=== PATIENT | female | born 1980 | race Caucasian/White ===

== ENCOUNTER → 2024-12-24 | Day surgery (SDC) | payer OTHER ==
[~2024-12-24] MED LIST: ACETAMINOPHEN 1000 MG/100 ML 100 ML IV ONE; ADDERALL 30 MG30 MG PO; DEXAMETHASONE SOD PHOS INJ 4 MG/ML SDV ONE; FAMOTIDINE 20 MG/2 ML VIAL IV ONE; FENTANYL CITRATE/PF 100MCG/2 ML INJ ONE; HYDROCODON-ACE1 EA11 PO; LIDOCAINE HCL 2% LOCAL INJ 5 ML SDV VIAL INJ ONE; METOPROLOL TART50 MG PO; MIDAZOLAM HCL 2 MG/2 ML VIAL ONE; PROPOFOL IV EMULSION 10 MG/ML 20 ML VIAL ONE; SODIUM CHLORIDE 0.9% 100 ML ONE; WOMEN'S DAILY1 EAC4 PO
[2024-12-24] MEDS: LACTATED RINGER'S 1,000 ML ONE (06:00)
[2024-12-24 08:18] VITALS: TEMP 97
[2024-12-24] MEDS: ACETAMINOPHEN/CODEINE 300MG - 30MG TAB ONE (08:40)
[2024-12-24 09:05] VITALS: BP 128/78; PULSE 78; RESP 16; O2SAT 99
== END | disposition home or self-care (01) ==
LOC: OR 05:13
PROVIDERS: ATTEND Plastic Surgery
DX: M67.422 Ganglion, left elbow (principal); I10 Essential (primary) hypertension; E78.5 Hyperlipidemia, unspecified; E03.9 Hypothyroidism, unspecified; F41.9 Anxiety disorder, unspecified; F32.A Depression, unspecified; Z01.810 Encounter for preprocedural cardiovascular examination; Z79.899 Other long term (current) drug therapy
CPT/HCPCS: 25111; 88304; 93005; J0131; J0690; J1100; J1308; J2003; J2250; J2704; J3010; J7050; J7121